=== PATIENT | female | born 1995 | race Caucasian/White ===

== ENCOUNTER 2020-08-16 08:50 | Emergency (ER) | payer SELFPAY ==
[~2020-08-16] VITALS: Ht 172.7 cm; Wt 148.1 kg
[~2020-08-16 08:50] MED LIST: CYCL10TA9 PO; KETO10TA PO; LEVO500T2 PO; LEVO500T69 PO; METR500T PO; MTF500T PO; ONDA4TAB8 PO; TRIA16.5 NS; TRM50T PO
[2020-08-16] MEDS ORDERED: LACTATED RINGERS 1,000 ML IV ONE (09:06)
[2020-08-16 09:13] LABS: BILIRUBIN,URINE NEGATIVE (NEGATIVE); CLARITY,URINE CLEAR; COLOR,URINE YELLOW; GLUCOSE, URINE (UA) NEGATIVE (NEGATIVE); KETONES,URINE NEGATIVE (NEGATIVE); LEUKOCYTE ESTERASE ,URINE NEGATIVE (NEGATIVE); NITRITE,URINE NEGATIVE (NEGATIVE); PROTEIN,URINE NEGATIVE (NEGATIVE)
--- NOTE | 2020-08-16 09:15 | ED Abdominal Pain ---
General Stated Complaint: ABD PAIN Source of Information: Patient Exam Limitations: No Limitations History of Present Illness Date Seen by Provider: Aug 16, 2020 Time Seen by Provider: 08:55 Initial Comments Here with report of lower abdominal pain and cramping to the back. She woke up with a gush of fluid this morning. States that she's had the pain intermittently over the last 2 days. She has not taken anything for that. She has not had a menstrual period since October. She has taken home test but those have been negative. She is sexually active with her . Denies blood in her urine or stool. States fluid was clear. Denies fever, chills, sore throat, runny nose, contact COVID-19 or other concerns. Pain is worse on the left lower and centrally and radiates to her back. Timing/Duration: 1-2 Days Severity/Quality: Moderate, Aching, Cramping Location: LLQ, Suprapubic Radiation: Back Activities at Onset: None Modifying Factors: Improves With Resting Associated Symptoms: Back Pain; No Fever/Chills, No Nausea/Vomiting, No Shortness of Air, No Swelling/Mass in Abdomen, No Weakness Allergies and Home Medications Allergies Coded Allergies: amoxicillin (Verified Allergy, Unknown, 08/16/16) clavulanic acid (Verified Allergy, Unknown, 08/16/16) Home Medications Ketorolac Tromethamine 10 Mg Tablet, 10 MG PO Q6H Prescribed by: JULIA AKHTAR on 08/16/16228 Levofloxacin 500 Mg Tablet, 500 MG PO DAILY Prescribed by: JULIA AKHTAR on 08/16/16228 Metformin Hcl 500 Mg Tablet, 1 EACH PO BID WITH MEALS, (Reported) Ondansetron 4 Mg Tab.rapdis, 4 MG PO Q4H Prescribed by: JULIA AKHTAR on 08/16/16228 Patient Home Medication List Home Medication List Reviewed: Yes Review of Systems Review of Systems Constitutional: see HPI EENTM: No Symptoms Reported, See HPI Respiratory: Denies Cough, Denies Shortness of Air Cardiovascular: Denies Chest Pain, Denies Edema Gastrointestinal: See HPI Genitourinary: Denies Flank Pain, Denies Hematuria, Denies Pain Musculoskeletal: see HPI; No muscle pain All Other Systems Reviewed Negative Unless Noted: Yes Past Ecrxhcl-Qimebx-Axccbh Hx Past Med/Social Hx: Reviewed Nursing Past Med/Soc Hx Patient Social History Alcohol Use: Denies Use Recreational Drug Use: No Smoking Status: Former Smoker Type Used: Cigarettes Recent Foreign Travel: No Contact w/Someone Who Travel: No Recent Hopitalizations: No Past Medical History Surgeries: Yes Orthopedic Respiratory: No Cardiac: No Neurological: No : No Reproductive Disorders: Yes Female Reproductive Disorders: Menstrual Problems Genitourinary: No Gastrointestinal: No Musculoskeletal: Yes Fractures Endocrine: Yes Diabetes, Non-Insulin dep Family Medical History Reviewed Nursing Family Hx Cancer, Diabetes, Hypertension Physical Exam Vital Signs Vital Signs - First Documented 08/16/20 08:54 Temp 36.1 Pulse 111 Resp 18 B/P (MAP) 178/117 (137) Pulse Ox 97 O2 Delivery Room Air Capillary Refill : Height/Weight/BMI Height: 5'8" Weight: 320lbs. oz. 145.014283tz; BMI Method:Stated General Appearance: WD/WN, no apparent distress, obese HEENT: PERRL/EOMI, pharynx normal Neck: full range of motion, supple Respiratory: lungs clear, normal breath sounds Cardiovascular: regular rate, rhythm, no murmur Peripheral Pulses: 2+ Dorsalis Pedis (R), 2+ Left Dors-Pedis (L), 2+ Radial Pulses (R), 2+ Radial Pulses (L) Gastrointestinal: soft, tenderness (left lower quadrant) Extremities: non-tender, normal inspection Back: normal inspection, no CVA tenderness, no vertebral tenderness Neurologic/Psychiatric: alert, oriented x 3 Skin: normal color, warm/dry Progress/Results/Core Measures Results/Orders Lab Results Laboratory Tests Test 08/16/20 09:04 08/16/20 09:15 Range/Units Urine Color YELLOW Urine Clarity CLEAR Urine pH 6.0 5-9 Urine Specific [place] 1.025 H 1.016-1.022 Urine Protein NEGATIVE NEGATIVE Urine Glucose (UA) NEGATIVE NEGATIVE Urine Ketones NEGATIVE NEGATIVE Urine Nitrite NEGATIVE NEGATIVE Urine Bilirubin NEGATIVE NEGATIVE Urine Urobilinogen 0.2 < = 1.0 MG/DL Urine Leukocyte Esterase NEGATIVE NEGATIVE Urine RBC (Auto) NEGATIVE NEGATIVE Urine RBC NONE /HPF Urine WBC 0-2 /HPF Urine Squamous Epithelial Cells 5-10 /HPF Urine Crystals NONE /LPF Urine Bacteria FEW H /HPF Urine Casts NONE /LPF Urine Mucus NEGATIVE /LPF Urine Culture Indicated NO White Blood Count 5.7 4.3-11.0 10^3/uL Red Blood Count 5.01 3.80-5.11 10^6/uL Hemoglobin 14.4 11.5-16.0 g/dL Hematocrit 43 35-52 % Mean Corpuscular Volume 86 80-99 fL Mean Corpuscular Hemoglobin 29 25-34 pg Mean Corpuscular Hemoglobin Concent 34 32-36 g/dL Red Cell Distribution Width 13.7 10.0-14.5 % Platelet Count 209 130-400 10^3/uL Mean Platelet Volume 10.6 9.0-12.2 fL Immature Granulocyte % (Auto) 0 % Neutrophils (%) (Auto) 61 42-75 % Lymphocytes (%) (Auto) 27 12-44 % Monocytes (%) (Auto) 8 0-12 % Eosinophils (%) (Auto) 3 0-10 % Basophils (%) (Auto) 1 0-10 % Neutrophils # (Auto) 3.5 1.8-7.8 10^3/uL Lymphocytes # (Auto) 1.5 1.0-4.0 10^3/uL Monocytes # (Auto) 0.5 0.0-1.0 10^3/uL Eosinophils # (Auto) 0.2 0.0-0.3 10^3/uL Basophils # (Auto) 0.0 0.0-0.1 10^3/uL Immature Granulocyte # (Auto) 0.0 0.0-0.1 10^3/uL Sodium Level 138 135-145 MMOL/L Potassium Level 4.4 3.6-5.0 MMOL/L Chloride Level 107 98-107 MMOL/L Carbon Dioxide Level 20 L 21-32 MMOL/L Anion Gap 11 5-14 MMOL/L Blood Urea Nitrogen 10 7-18 MG/DL Creatinine 0.65 0.60-1.30 MG/DL Estimat Glomerular Filtration Rate > 60 BUN/Creatinine Ratio 15 Glucose Level 103 70-105 MG/DL Calcium Level 8.9 8.5-10.1 MG/DL Corrected Calcium 8.8 8.5-10.1 MG/DL Total Bilirubin 0.4 0.1-1.0 MG/DL Aspartate Amino Transf (AST/SGOT) 29 5-34 U/L Alanine Aminotransferase (ALT/SGPT) 59 H 0-55 U/L Alkaline Phosphatase 44 40-136 U/L C-Reactive Protein High Sensitivity 0.87 H 0.00-0.50 MG/DL Total Protein 7.2 6.4-8.2 GM/DL Albumin 4.1 3.2-4.5 GM/DL Human Chorionic Gonadotropin, Quant < 5 <5 MIU/ML Micro Results Microbiology 08/16/20 Wet Prep - Final, Complete My Orders Orders - BRIDGET DAVENPORT MD Cbc With Automated Diff (08/16/20 09:06) Comprehensive Metabolic Panel (08/16/20 09:06) Hs C Reactive Protein (08/16/20 09:06) Ua Culture If Indicated (08/16/20 09:06) Ed Iv/Invasive Line Start (08/16/20 09:06) Lactated Ringers (Lr 1000 Ml Iv Solution (08/16/20 09:06) Urine Bedside (08/16/20 09:06) Hcg,Quantitative (08/16/20 09:42) Ct Abdomen/Pelvis W (08/16/20 10:14) Iohexol Injection (Omnipaque 350 Mg/Ml 1 (08/16/20 10:30) Received Contrast (Hold Metformin- Contr (08/16/20 10:30) Ns (Ivpb) (Sodium Chloride 0.9% Ivpb Bag (08/16/20 10:30) Neis Dylan Dna Urine Test (08/16/20 11:08) Chlamydia Trachomatis Urine (08/16/20 11:08) Wet Prep (08/16/20 11:08) Ketorolac Injection (Toradol Injection) (08/16/20 11:46) Medications Given in ED Current Medications Medications Dose Ordered Sig/Abdias Route Start Time Stop Time Status Last Admin Dose Admin Iohexol 100 ml ONCE ONCE IV 08/16/20 10:30 08/16/20 10:31 DC 08/16/20 10:36 100 ML Lactated Ringer's 1,000 ml @ 0 mls/hr Q0M ONCE IV 08/16/20 09:06 08/16/20 09:07 DC 08/16/20 09:22 1,000 MLS/HR Sodium Chloride 100 ml ONCE ONCE IV 08/16/20 10:30 08/16/20 10:31 DC 08/16/20 10:37 80 ML Vital Signs/I&O 11/7/20 08:54 Temp 36.1 Pulse 111 Resp 18 B/P (MAP) 178/117 (137) Pulse Ox 97 O2 Delivery Room Air Progress Progress Note : Progress Note Seen and evaluated. Bedside ultrasound performed and no obvious advanced . IV, labs, UA, UCG bedside testing and LR 1 L bolus ordered. Bedside testing is also negative. We will check labs and anticipate CT abdomen and pelvis with contrast for the left lower quadrant abdominal pain. Monitor patient. 1120: CT complete and does not show any concerning findings. Toradol 30 mg IV for pain. We will do GC and chlamydia via urine and get wet prep for concerns for bacterial vaginosis as a possible cause. Monitor patient. 1152: Wet prep is positive for clue cells and white cells. We will initiate outpatient metronidazole. Discharged home with return precautions. Patient verbalize understanding instructions and agreement with plan. Diagnostic Imaging Diagonstic Imaging: CT Plain Films/CT/US/NM/MRI: abdomen, pelvis Comments [facility] [place], [place] NAME: [facility] REC#: [id number] PT STATUS: REG ER : 1995 PHYSICIAN: BRIDGET DAVENPORT MD ADMIT DATE: 08/16/20/ER Draft Date of Exam:08/16/20 CT ABDOMEN/PELVIS W CT ABDOMEN/PELVIS W TECHNIQUE: Multiple contiguous axial images were obtained through the abdomen and pelvis after administration of intravenous contrast. All CT scans use one or more of the following dose optimizing techniques: automated exposure control, MA and/or KvP adjustment based on a patient size and exam type, or iterative reconstruction. INDICATION: Lower abdominal pain. Pelvic discharge. COMPARISON: CT abdomen and pelvis of 08/15/2016 FINDINGS: Lower chest: The lung bases are clear. No pericardial or pleural effusion. Peritoneum: No free intraperitoneal air or fluid. Liver and biliary system: Diffuse hypoattenuation liver suggests hepatic steatosis. No focal hepatic lesion. The gallbladder is normal. No biliary duct dilation. Spleen and Pancreas: Spleen is normal. The pancreas enhances normally without mass lesion or peripancreatic inflammatory changes. Adrenals: Normal. tract: The kidneys enhance normally without suspicious mass or obstruction. Urinary bladder is distended without wall thickening. Uterus and ovaries are physiologic in appearance. No dilation of the fallopian tubes suggest pelvic inflammatory disease. GI tract: Stomach is decompressed. No bowel obstruction. No pericolonic inflammatory changes. Normal appendix. Vasculature and Lymph nodes: Normal caliber aorta. No abdominal or pelvic lymphadenopathy. Musculoskeletal: No concerning osseous lesion. IMPRESSION: 1. No acute inflammatory or obstructive process. 2. Mild hepatic steatosis. Dictated on workstation # [id number] Dict: 08/16/20 1051 Trans: 08/16/20 1055 [id number] Interpreted by: ROMEL VO MD Electronically signed by: Departure Impression Primary Impression: Lower abdominal pain Additional Impression: Bacterial vaginosis Disposition: HOME, SELF-CARE Condition: Stable Departure-Patient Inst. Decision time for Depature: 11:53 Referrals: NO,LOCAL PHYSICIAN (PCP/Family) Primary Care Physician Patient Instructions: Severe Abdominal Pain, Adult (DC), Bacterial Vaginosis (DC) Add. Discharge Instructions: You may take ibuprofen 800 mg every 8 hours as needed for pain. You may also take Tylenol/acetaminophen 1000 mg every 8 hours as needed for pain.Take medications as directed. Follow-up with your Dr. in a few days for recheck. Retu rn for worse pain, fever, vomiting, weakness, breathing problems or other concerns as needed. Do not drink alcohol while taking the metronidazole (Flagyl) as this will cause you to be nauseated and or vomit. Scripts Metronidazole (Metronidazole) 500 Mg Tablet 500 MG PO BID, #14 TAB 0 Refills Prov: BRIDGET DAVENPORT MD 08/16/20 BRIDGET DAVENPORT MD Aug 16, 2020 09:15
[2020-08-16 09:20] LABS: BACTERIA,URINE FEW /HPF; WBC,URINE 0-2 /HPF
[2020-08-16 09:23] LABS: BASOPHILS % (AUTO) 1 % (0-10); EOSINOPHILS # (AUTO) 0.2 10^3/uL (0.0-0.3); EOSINOPHILS % (AUTO) 3 % (0-10); HEMATOCRIT 43 % (35-52); HEMOGLOBIN 14.4 g/dL (11.5-16.0); LYMPHOCYTES # (AUTO) 1.5 10^3/uL (1.0-4.0); LYMPHOCYTES % (AUTO) 27 % (12-44); MEAN CORPUSCULAR HEMOGLOBIN 29 pg (25-34); MEAN CORPUSCULAR HGB CONC 34 g/dL (32-36); MEAN CORPUSCULAR VOLUME 86 fL (80-99); MEAN PLATELET VOLUME 10.6 fL (9.0-12.2); MONOCYTES # (AUTO) 0.5 10^3/uL (0.0-1.0); MONOCYTES % (AUTO) 8 % (0-12); NEUTROPHILS # (AUTO) 3.5 10^3/uL (1.8-7.8); NEUTROPHILS % (AUTO) 61 % (42-75); PLATELET COUNT 209 10^3/uL (130-400); WHITE BLOOD COUNT 5.7 10^3/uL (4.3-11.0)
[2020-08-16 09:33] LABS: ALBUMIN 4.1 GM/DL (3.2-4.5); CHLORIDE 107 MMOL/L (98-107); POTASSIUM 4.4 MMOL/L (3.6-5.0); SODIUM 138 MMOL/L (135-145)
[2020-08-16 09:34] LABS: CALCIUM 8.9 MG/DL (8.5-10.1)
[2020-08-16 09:36] LABS: GLUCOSE 103 MG/DL (70-105); TOTAL PROTEIN 7.2 GM/DL (6.4-8.2)
[2020-08-16 09:37] LABS: BILIRUBIN,TOTAL 0.4 MG/DL (0.1-1.0); CARBON DIOXIDE 20 MMOL/L (21-32)
[2020-08-16 09:39] LABS: ALKALINE PHOSPHATASE 44 U/L (40-136); CREATININE SERUM 0.65 MG/DL (0.60-1.30); GFR ESTIMATED > 60
[2020-08-16 09:41] LABS: BUN/CREATININE RATIO 15
[2020-08-16 09:42] LABS: ALANINE AMINOTRANSFERASE 59 U/L (0-55)
--- NOTE | 2020-08-16 10:14 | NUR ---
ON ADMIT PATIENT STATES SHE WOULD KEEP IN CONTACT WITH . JUST CALLED ASKING FOR UPDATE WENT TO ROOM PATIENT REPORTED HER PHONE IS NOW AND CAN'T CONACT HIM PHONE GIVEN TO CALL
[2020-08-16] MEDS ORDERED: HOLD METFORMIN - RECEIVED CONTRAST 20 ML VIAL IV SCH (10:30)
[2020-08-16] MEDS ORDERED: NS 100 ML (IVPB) BAG IV ONE (10:30)
[2020-08-16] MEDS ORDERED: IOHEXOL 350 MG/ML 100 ML (OMNIPAQUE 350) VIAL IV ONE (10:30)
--- NOTE | 2020-08-16 10:55 | NUR ---
DAD CALLED AND SHE WOULD CALL HIM WAS CONFUSED WHY HE WOULD BE CALLING.
--- NOTE | 2020-08-16 10:56 | Diagnostic Imaging Report ---
CT ABDOMEN/PELVIS W TECHNIQUE: Multiple contiguous axial images were obtained through the abdomen and pelvis after administration of intravenous contrast. All CT scans use one or more of the following dose optimizing techniques: automated exposure control, MA and/or KvP adjustment based on a patient size and exam type, or iterative reconstruction. INDICATION: Lower abdominal pain. Pelvic discharge. COMPARISON: CT abdomen and pelvis of 08/15/2016 FINDINGS: Lower chest: The lung bases are clear. No pericardial or pleural effusion. Peritoneum: No free intraperitoneal air or fluid. Liver and biliary system: Diffuse hypoattenuation liver suggests hepatic steatosis. No focal hepatic lesion. The gallbladder is normal. No biliary duct dilation. Spleen and Pancreas: Spleen is normal. The pancreas enhances normally without mass lesion or peripancreatic inflammatory changes. Adrenals: Normal. tract: The kidneys enhance normally without suspicious mass or obstruction. Urinary bladder is distended without wall thickening. Uterus and ovaries are physiologic in appearance. No dilation of the fallopian tubes suggest pelvic inflammatory disease. GI tract: Stomach is decompressed. No bowel obstruction. No pericolonic inflammatory changes. Normal appendix. Vasculature and Lymph nodes: Normal caliber aorta. No abdominal or pelvic lymphadenopathy. Musculoskeletal: No concerning osseous lesion. IMPRESSION: 1. No acute inflammatory or obstructive process. 2. Mild hepatic steatosis. Dictated by: Dictated on workstation # [id number]
--- NOTE | 2020-08-16 11:05 | NUR ---
IN ROOM DISCUSSING RELULTS WITH PATIENT
--- NOTE | 2020-08-16 11:35 | NUR ---
PATIENT C/O IV BURNING FLUSED WITHOUT PROBLEM AFTER FLUSED PATIENT REPORTS THAT IT IS NOT BURNING NOW.
[2020-08-16] MEDS ORDERED: KETOROLAC 30 MG/ML VIAL IVP STA (11:46)
[2020-08-16] MEDS ORDERED: METR-145 PO (11:54)
[2020-08-16 12:01] VITALS: BP 186/99
== END 2020-08-16 12:00 | disposition home or self-care (01) ==
LOC: EDUNIT# 08:50 → ER 08:52
DX: R10.32 Left lower quadrant pain (principal); N76.0 Acute vaginitis; E66.9 Obesity, unspecified; E11.9 Type 2 diabetes mellitus without complications; Z68.45 Body mass index [BMI] 70 or greater, adult; Z82.49 Family history of ischemic heart disease and other diseases of the circulatory system; Z83.3 Family history of diabetes mellitus; Z80.9 Family history of malignant neoplasm, unspecified; Z88.1 Allergy status to other antibiotic agents; Z87.891 Personal history of nicotine dependence; Z79.84 Long term (current) use of oral hypoglycemic drugs
CPT/HCPCS: 36415; 74177; 80053; 81000; 84702; 84703; 85025; 86141; 87210; 87491; 87591